=== PATIENT | female | born 1955 | race Caucasian/White ===

== ENCOUNTER 2022-10-18 08:53 | Emergency (ER) | payer BC ==
[~2022-10-18] VITALS: Ht 177.8 cm; Wt 101.8 kg
[~2022-10-18 08:53] MED LIST: ASPI-1071 PO; ATOR10TA70 PO; LEVO112T5 PO; NORT50CA PO; OMEP20CA16 PO; OXYC-145 PO; TRAM50TA2 PO
[2022-10-18 09:56] LABS: BASOPHILS % (AUTO) 0.5 % (0-1); EOSINOPHILS # (AUTO) 0.1 X10'3 (0-0.9); EOSINOPHILS % (AUTO) 2.1 % (0-6); HEMATOCRIT 44.3 % (35.0-45.0); HEMOGLOBIN 14.3 g/dl (12.0-16.0); LYMPHOCYTES # (AUTO) 1.1 X10'3 (1.1-4.8); LYMPHOCYTES % (AUTO) 18.8 % (21-51); MEAN CORPUSCULAR HEMOGLOBIN 27.2 PG (27.0-31.0); MEAN CORPUSCULAR HGB CONC 32.3 g/dL (33.0-36.5); MEAN CORPUSCULAR VOLUME 84.2 FL (78-98); MEAN PLATELET VOLUME 9.4 FL (7.4-10.4); MONOCYTES # (AUTO) 0.5 X10'3 (0-0.9); MONOCYTES % (AUTO) 8.3 % (2-12); NEUTROPHILS # (AUTO) 4.2 X10'3 (1.8-7.7); NEUTROPHILS % (AUTO) 70.3 % (42-75); PLATELET COUNT 172 X10'3 (140-440); RED BLOOD COUNT 5.26 X10'6 (4.20-5.60); RED CELL DISTRIBUTION WIDTH 15.4 % (11.5-14.5); WHITE BLOOD COUNT 5.9 X10'3 (4.5-11.0)
[2022-10-18 10:22] LABS: ALANINE AMINOTRANSFERASE 32 U/L (12-78); ALBUMIN/GLOBULIN RATIO 1.3 (1.1-1.5); ALKALINE PHOSPHATASE 152 IU/L (46-116); ANION GAP 4 (8-16); ASPARTATE AMINO TRANSFERASE 18 U/L (10-37); BILIRUBIN,TOTAL 0.3 MG/DL (0.1-1.0); BLOOD UREA NITROGEN 20 MG/DL (7-18); BUN/CREATININE RATIO 25.6 (10.0-20.0); CALCIUM 9.3 MG/DL (8.5-10.1); CHLORIDE 102 MMOL/L (99-107); CREATININE 0.78 MG/DL (0.40-0.90); GLUCOSE 96 MG/DL (70-104); POTASSIUM 4.2 MMOL/L (3.5-5.1); SODIUM 139 MMOL/L (135-145); TOTAL CARBON DIOXIDE 32.8 MMOL/L (24-32); TOTAL PROTEIN 7.2 G/DL (6.4-8.2); eGFR 74 ML/MIN
[2022-10-18 10:23] LABS: LIPASE 56 U/L (73-393)
[2022-10-18] MEDS ORDERED: iohexol 300mg/ml 100ml inj. ONE (11:37)
[2022-10-18 12:22] LABS: CLARITY,URINE CLEAR (Clear); COLOR,URINE YELLOW (Yellow); GLUCOSE, URINE NEGATIVE (Neg); KETONES,URINE NEGATIVE (Neg); LEUKOCYTE ESTERASE ,URINE NEGATIVE (Neg); NITRITES, URINE NEGATIVE (Neg); OCCULT BLOOD,URINE NEGATIVE (Neg); PROTEIN,URINE NEGATIVE (Neg); UROBILINOGEN,URINE 0.2 E.U/dL (0.2-1.0)
[2022-10-18 12:31] LABS: UA COLLECTION TYPE CLN CATCH MIDSTREAM
[2022-10-18 12:53] VITALS: BP 126/58
== END 2022-10-18 12:55 | disposition home or self-care (01) ==
LOC: ER 08:53
DX: K42.9 Umbilical hernia without obstruction or gangrene (principal); R35.0 Frequency of micturition
CPT/HCPCS: 36415; 74177; 80053; 81003; 83690; 85025; 99285; J3490; Q9967

== ENCOUNTER 2023-02-24 12:11 | Day surgery (SDC) | payer BC ==
[2023-02-18 11:33] LABS: BASOPHILS % (AUTO) 0.5 % (0-1); EOSINOPHILS # (AUTO) 0.2 X10'3 (0-0.9); EOSINOPHILS % (AUTO) 2.8 % (0-6); LYMPHOCYTES # (AUTO) 1.3 X10'3 (1.1-4.8); LYMPHOCYTES % (AUTO) 24.6 % (21-51); MEAN CORPUSCULAR HEMOGLOBIN 27.9 PG (27.0-31.0); MEAN CORPUSCULAR HGB CONC 32.7 g/dL (33.0-36.5); MEAN CORPUSCULAR VOLUME 85.3 FL (78-98); MEAN PLATELET VOLUME 9.3 FL (7.4-10.4); MONOCYTES # (AUTO) 0.4 X10'3 (0-0.9); NEUTROPHILS # (AUTO) 3.4 X10'3 (1.8-7.7); NEUTROPHILS % (AUTO) 64.1 % (42-75); PRE OP HEMATOCRIT 41.5 % (35.0-45.0); PRE OP HEMOGLOBIN 13.6 g/dL (12.0-16.0); PRE OP PLATELET COUNT 171 X10'3 (140-440); PRE OP WHITE BLOOD COUNT 5.4 10'3 (4.8-10.8); RED BLOOD COUNT 4.86 X10'6 (4.20-5.60); RED CELL DISTRIBUTION WIDTH 15.2 % (11.5-14.5)
[2023-02-18 11:41] LABS: BILIRUBIN,URINE NEGATIVE (Neg); CLARITY,URINE CLOUDY (Clear); COLOR,URINE YELLOW (Yellow); GLUCOSE, URINE NEGATIVE (Neg); KETONES,URINE NEGATIVE (Neg); LEUKOCYTE ESTERASE ,URINE NEGATIVE (Neg); NITRITES, URINE NEGATIVE (Neg); OCCULT BLOOD,URINE NEGATIVE (Neg); PROTEIN,URINE NEGATIVE (Neg)
[2023-02-18 11:46] LABS: PRE OP INR 0.9 INR; PRE OP PROTIME 10.1 SECONDS (9.0-12.0)
[2023-02-18 11:48] LABS: UA COLLECTION TYPE CLN CATCH MIDSTREAM
[2023-02-18 11:50] LABS: BACTERIA,URINE NONE SEEN /HPF (Neg); MUCUS STRANDS NONE SEEN /LPF (Neg); RBC,URINE NONE SEEN /HPF (0-2); SQUAMOUS EPITHELIAL CELL,UR MODERATE /LPF (FEW); WBC,URINE 0-4 /HPF (0-4)
[2023-02-18 12:08] LABS: ALBUMIN 3.7 G/DL (3.4-5.0); ALBUMIN/GLOBULIN RATIO 1.1 (1.1-1.5); ALKALINE PHOSPHATASE 141 IU/L (46-116); CALCIUM 9.1 MG/DL (8.5-10.1); CHLORIDE 104 MMOL/L (99-107); CREATININE 0.61 MG/DL (0.40-0.90); PRE OP ALT 34 U/L (30-65); PRE OP ANION GAP 6 (8-16); PRE OP AST 24 U/L (10-37); PRE OP BILIRUB, TOTAL 0.3 MG/DL (0.0-1.0); PRE OP GLUCOSE 96 MG/DL (70-104); PRE OP SODIUM 142 MMOL/L (135-145); TOTAL CARBON DIOXIDE 31.7 MMOL/L (24-32); eGFR > 90 ML/MIN
[2023-02-18 12:16] LABS: BLOOD UREA NITROGEN 18 MG/DL (7-18); BUN/CREATININE RATIO 29.5 (10.0-20.0); PRE OP POTASSIUM 3.6 MMOL/L (3.4-5.1)
[2023-02-24] VITALS (10 sets, daily range): BP systolic 109–159; BP diastolic 51–67; PULSE 66–78; RESP 13–16; TEMP 97.2; O2SAT 94–98
[~2023-02-24] VITALS: Ht 177.2 cm; Wt 102.2 kg
[~2023-02-24 12:11] MED LIST changes: +ALBU8HFA PO; +DULO30CA52 PO; +IBUP-1984 PO; -LEVO112T5 PO; +LEVO125T8 PO; +METF-1203 PO; -NORT50CA PO; -OXYC-145 PO; +PANT40TA54 PO; +cefazolin 2gm/D5W 100mL 100 ML IV ONE; +famotidine 20mg tablet PO ONE; +ringers solution, lacted 1,000 ML IV SCH
[2023-02-24] MEDS ORDERED: ondansetron/PF 4mg/2ml inj ONE (18:54)
[2023-02-24] MEDS ORDERED: sevoflurane 250ml liquid IH ONE (18:54)
[2023-02-24] MEDS ORDERED: rocuronium 10mg/ml inj IV ONE ×2 (18:54→19:13)
[2023-02-24] MEDS ORDERED: BUPIVAcaine/PF 2.5 mg/ml (0.25%) 30ml vial ONE ×2 (19:00→19:03)
[2023-02-24] MEDS ORDERED: BUPIVACAINE liposomal/PF 13.3 MG/ML vial IM ONE (19:00)
[2023-02-24] MEDS ORDERED: BUPIVAcaine/PF 2.5mg/ml (0.25%) 10ml vial ONE (19:00)
[2023-02-24] MEDS ORDERED: fentaNYL/PF 50MCG/1 ML 2ML syringe ONE (19:02)
[2023-02-24] MEDS ORDERED: midazolam 1 mg/ML 2ml injection ONE (19:02)
[2023-02-24] MEDS ORDERED: propofol inj 20 ML IV ONE (19:04)
[2023-02-24] MEDS ORDERED: BUPIVAcaine/PF 2.5 mg/ml (0.25%) 30ml vial IJ ONE (19:41)
[2023-02-24] MEDS ORDERED: morphine 4 MG/ML inj SYRINge IV PRN (20:00)
[2023-02-24] MEDS ORDERED: ondansetron/PF 4mg/2ml inj IV PRN (20:00)
[2023-02-24] MEDS ORDERED: ringers solution, lacted 1,000 ML IV SCH (20:00)
[2023-02-24] MEDS ORDERED: labetalol 20mg/4ml (5mg/ml) syringe IV PRN (20:00)
[2023-02-24] MEDS ORDERED: morphine 2 MG/ML inj. syringe IV PRN (20:00)
[2023-02-24] MEDS ORDERED: meperidine/PF 25mg/ml syringe IV PRN ×3 (20:00)
[2023-02-24] MEDS ORDERED: proCHLORperazine 10 MG/2 ml inj IV PRN (20:00)
[2023-02-24] MEDS ORDERED: ketorolac trometh. 30mg/ml inj. IV ONE (20:00)
[2023-02-24] MEDS ORDERED: acetaminophen 1,000mg/100ml IV 100 ML IV ONE (20:25)
[2023-02-24] MEDS ORDERED: dexamethasone sod phosphate 4mg/ml inj. ONE (20:26)
[2023-02-24] MEDS ORDERED: glycopyrrolate 0.2mg/ml inj ONE (21:09)
[2023-02-24] MEDS ORDERED: neostigmine methylsulfate 1 MG/ML 10ml vial ONE (21:09)
--- NOTE | 2023-02-24 21:15 | NUR ---
Received from OR via , accompanied by Anesthesiologist and report given by Anesthesiolgist. PATIENT A&OX4, DENIES PAIN, V/S WNL, SCD ON , PIV 20G LUE, LAP SITES TO ABDOMEN CDI
[2023-02-24] MEDS ORDERED: HYDROcodone/acetaminophen 5mg/325mg tablet PO ONE (21:35)
--- NOTE | 2023-02-24 22:15 | NUR ---
PATIENT A&OX4, DENIES PAIN, V/S WNL, SCD OFF , PIV 20G LUE D/C, LAP SITES TO ABDOMEN CDI. DC HOME: ALL DISCHARGE CRITERIA HAS BEEN MET. VSS, PAIN AT TOLERABLE LEVEL. ABLE TO SAFELY AMBULATE AND TRANSFER SELF. IV TAKEN OUT WITHOUT ANY COMPLICATIONS. ALL DISCHARGE INSTRUCTIONS COVERED WITH PATIENT AND ALL QUESTIONS ANSWERED. PATIENT TAKEN OUT VIA WHEELCHAIR TO PERSONAL VEHICLE WHERE FAMILY/FRIEND DROVE PATIENT HOME.
== END 2023-02-24 22:15 | disposition home or self-care (01) ==
LOC: PAS 12:11
PROVIDERS: ATTEND Surgery
DX: K43.0 Incisional hernia with obstruction, without gangrene (principal); E11.9 Type 2 diabetes mellitus without complications; E03.9 Hypothyroidism, unspecified; J45.909 Unspecified asthma, uncomplicated; G47.33 Obstructive sleep apnea (adult) (pediatric); M19.90 Unspecified osteoarthritis, unspecified site; Z87.891 Personal history of nicotine dependence; Z79.2 Long term (current) use of antibiotics; Z79.84 Long term (current) use of oral hypoglycemic drugs; Z79.890 Hormone replacement therapy; Z79.899 Other long term (current) drug therapy; Z90.49 Acquired absence of other specified parts of digestive tract; Z98.891 History of uterine scar from previous surgery; Z90.710 Acquired absence of both cervix and uterus; Z98.890 Other specified postprocedural states
CPT/HCPCS: 36415; 49594; 71046; 80053; 81001; 82948; 85025; 85610; 85730; 86885; 86900; 86901; 93005; C1781; C9290; J0131; J0690; J1100; J1885; J2175; J2250; J2405; J2704; J2710; J3010; J3490; J7030; J7120; S2900; Z7506; Z7508; Z7512; A4215; A4618; C1758